=== PATIENT | male | born 1940 | race Caucasian/White ===

== ENCOUNTER 2021-02-10 15:24 | Outpatient (REF) | payer MEDICARE, BC, SELFPAY ==
[2021-02-10 17:12] LABS: Abs Immature Grans 0.04 10^3/uL (0.0-0.06); Absolute Basophil Count 0.03 10^3/uL (0.0-0.2); Absolute Eosinophil Count 0.12 10^3/uL (0.0-0.7); Absolute Monocyte Count 0.77 10^3/uL (0.1-0.8); Absolute Neutrophil Count 5.15 10^3/uL (1.2-6.7); Basophils % 0.4; Eosinophils % 1.5; HCT 38.8 % (40.0-50.0); HGB 12.3 g/dL (13.5-17.5); Immature Grans % 0.5; Lymphocytes % 21.8; MCH 31.5 pg (27.0-33.0); MCHC 31.7 % (32.0-36.0); MCV 99.5 fL (80-95); MPV 10.3 fL (8.0-11.0); Monocytes % 9.9; Neutrophils % 65.9; Nucleated RBC 0 %; Platelet Count 239 10^3/uL (130-400); RDW 12.9 % (11.8-14.1); WBC 7.81 10^3/uL (4.4-10.8)
[2021-02-10 18:37] LABS: Hemoglobin A1C 5.4 % (<5.7)
== END 2021-02-10 15:25 | disposition home or self-care (01) ==
LOC: LBN 15:24
PROVIDERS: PCP Family Medicine; Visit Provider Internal Medicine
DX: N39.0 Urinary tract infection, site not specified; E11.9 Type 2 diabetes mellitus without complications; E78.5 Hyperlipidemia, unspecified; F02.80 Dementia in other diseases classified elsewhere, unspecified severity, without behavioral disturbance, psychotic disturbance, mood disturbance, and anxiety; G31.83 Neurocognitive disorder with Lewy bodies
CPT/HCPCS: 80053; 80069; 82306; 82607; 82728; 82746; 83036; 83540; 83735; 84443; 85025

== ENCOUNTER 2021-03-24 00:13 | Emergency (ER) | payer MEDICARE, BC, SELFPAY ==
--- NOTE | 2021-03-24 00:15 | DI.CT_ITS ---
Exam(s) CT HEAD CERV SPINE FACIAL WO EXAM: CT HEAD CERV SPINE FACIAL WO CLINICAL HISTORY: fall, hit head, left orbit cut. TECHNIQUE: Imaging Protocol: Axial computed tomography images with coronal and sagittal reformatted images were created and reviewed COMPARISON: CT HEAD WITHOUT CONTRAST from 03/19/2013 FINDINGS: CT Head: Ventricles and Extra axial spaces: Normal in size and morphology for the patient's age. Hemorrhage: None. Cerebral parenchyma: No acute territorial infarct. There are areas of decreased attenuation in the w myke matter most consistent with small vessel ischemic disease. Midline shift: None. Brainstem/Cerebellum: Normal. Calvarium: Normal. Visualized Paranasal sinuses/Mastoids: There is mild mucosal thickening in the maxillary sinuses and ethmoid air cells bilaterally. No fluid levels are seen. The mastoid air cells are clear. Soft Tissues: Unremarkable. CT Face: Facial Bones: There is a depression of the left nasal bones. Sinuses and Mastoids: Mild mucosal thickening is seen in the maxillary sinuses and ethmoid air cells bilaterally. There may be a trace amount of fluid layering in the right maxillary sinus. The masto id air cells are clear. Mild mucosal thickening is seen in the frontal sinuses. Globes, extraocular muscles, optic nerves and retrobulbar fat: Normal. Upper aerodigestive tract: Normal. Mandible and bilateral temporomandibular joints: Normal. Soft tissues: Normal. CT Cervical Spine: Bones: No acute fracture or subluxation. There are degenerative changes seen throughout the cervical spine. Soft Tissues: Unremarkable. Lung Apices: Clear. IMPRESSION: 1. No acute intracranial process. 2. No acute fracture or subluxation in the cervical spine. 3. Depression of the left nasal bone which may be acute. RADIATION DOSE DELIVERED: 2,194mGy.cm Total DLP DATA REPOSITORY: All CT scans at this facility are submitted to the National Radiology Data Registry (NRDR) Dose Index Registry (DIR) with the [employer] (A[employer]). RADIATION OPTIMIZATION: All CT scans at this facility use at least one of these dose optimization te chniques: automated exposure control; mA and/or kV adjustment per patient size (includes targeted exa ms where dose is matched to clinical indication); or iterative reconstruction.
[2021-03-24 00:16] VITALS: BP 164/74; PULSE 84; RESP 18; TEMP 36.3; O2SAT 98
--- NOTE | 2021-03-24 00:26 | DI.RAD_ITS ---
Exam(s) XR SHOULDER LT COMPLETE 2+V EXAM: XR SHOULDER LT COMPLETE 2+V CLINICAL HISTORY: fall, left shoulder pain. TECHNIQUE: 2D digital imaging was performed of the left shoulder. Four images were obtained. AP an d Y views were obtained. COMPARISON: No exams were available for comparison FINDINGS: BONES: No acute fracture is present. No bony destructive lesion is seen. JOINTS: No dislocation present. Mild degenerative changes at the acromioclavicular and glenohumeral j oints. SOFT TISSUE: Normal. IMPRESSION: No acute fracture or dislocation. DATA REPOSITORY: RADIATION DOSE DELIVERED:
--- NOTE | 2021-03-24 00:27 | W.ED.GENAD ---
Discharge Plan Disposition Patient Disposition: HOME Condition: Good Discharge Details Clinical Impression: Fall, Contusion, Abrasion Primary Care Provider: Ferny Bess ED Provider: Josh Clark Home Meds and New Rx's Prescriptions: Continued metformin 500 MG tablet 500 mg PO BID RF: 0 nabumetone 750 MG tablet 750 mg PO BID RF: 0 alprazolam 1 MG tablet 1 mg PO QID PRN PRNRF: 0 sertraline 100 MG tablet 100 mg PO DAILY RF: 0 aspirin 81 MG tablet,delayed release (DR/EC) 81 mg PO DAILY RF: 0 ascorbic acid (vitamin C) [Vitamin C] 500 MG tablet 500 mg PO DAILY RF: 0 nitroglycerin [Nitrostat] 0.4 MG tablet, sublingual 0.4 mg Sublingual PRN PRNRF: 0 lisinopril 5 MG tablet 5 mg PO DAILY RF: 0 clotrimazole 45 GM cream RF: 0 finasteride 5 MG tablet 5 mg PO DAILY RF: 0 oxycodone 5 MG tablet 5 - 10 mg PO PRN PRNRF: 0 alfuzosin [Uroxatral] 10 MG tablet extended release 24 hr 10 mg PO DAILY RF: 0 magnesium oxide 500 MG capsule 500 mg PO DAILY RF: 0 Discharge Instructions Instructions: Contusion in Adults (ED) Additional Instructions: At this time the CAT scan of your head is negative for any fracture, bleed, or other abnormality. The x-ray of your shoulder shows no signs of fracture either thankfully. There is a mild deformity in your nose on the imaging however this is likely from the previous fall that you had were your nose was broken. Currently there does not appear to be current clinical evidence of a significant fracture now though. For the abrasion on your hand please change the bandaging twice daily. Please apply bacitracin or triple antibiotic ointment daily to prevent infection. The small laceration on your eyebrow was glued with Dermabond. This will come off on its own in the next 7 to 10 days. Please keep it bandaged otherwise. If you notice any worsening of your symptoms, or any new symptoms such as vomiting, diarrhea, fever, chills, shortness of breath, chest pain, numbness, weakness, or fainting , please return immediately to the emergency department for reevaluation. Please follow up with your primary care provider as soon as possible for reassessment and reevaluation. As always, it was a pleasure participating in your medical care today. Referrals: Ferny Bess [Primary Care Provider] - Medical Decision Making This is an 80-year-old male with a past medical history of BPH, diabetes, gout, hypertension, previous GI bleed who presents from the [facility] for evaluation after a fall. Patient states he recalls the entire event. He states that he was reaching off of his bed, then fell and hit his head on the furniture next to his bed. He had an abrasion that was incurred over his left hand and left eyebrow. He is not on any blood thinners. Nursing staff from the [facility] states that the patient was also complaining of right shoulder pain, but the patient complains currently of left shoulder pain. Patient denies any pain in the shoulders at this time. No other complaints at this time. No other modifying factors. He denies any chest, back, arm or leg pain. Physical exam demonstrates no midline cervical thoracic or lumbar spine tenderness. Patient does have a mild abrasion over the left brow, and left knuckle. No other evidence of significant trauma. No neurologic deficits on exam. Due to the patient's age and risk factors we will get a CT scan of the head neck and face. We will get an x-ray of the left shoulder based on his most recent statements. Low likelihood for fracture though based on current clinical exam. Will monitor closely and reassess. 1:[address] scan of the head is negative for acute process, there is some deformity of the nasal bone, however upon my discussion with the patient's he has fractured his nose in the past. This is likely what we are seeing on imaging now. He does not appear to have evidence of a significant acute nasal fracture currently. However there may be a small component from his fall today although I feel this is less likely. The patient's left brow was glued with Dermabond and this is reapproximated the skin well. X-ray of the shoulder shows no evidence of fracture currently. At this time the patient remained stable. I did call the patient's and discussed the plan with her, and she agrees. Answered all questions. Patient will be stable for discharge back to the [facility] facility. I have extensively reviewed the treatment plan and discharge instructions with the patient and their family. I have addressed all patient concerns at this time. The patient and family was made aware of what symptoms to monitor for that would warrant a return to the emergency department. Discussed the plan with the patient and family, they demonstrate verbal understanding and agreement with our assessment and plan at this time. The documentation in this chart was dictated using [employer] dictation software. Please excuse any dictation errors. FINDINGS: Bones/joints: Negative for fracture or dislocation. Normal acromioclavicular alignment. Acromial humeral space maintained. Mild glenohumeral narrowing. Soft tissues: Negative for soft tissue air. No foreign bodies observed. Visualized lung is clear. IMPRESSION: No acute osseous abnormality. If symptoms persist, follow-up imaging advised. Thank you for allowing us to participate in the care of your patient. Dictated and Authenticated by: Toi Betancourt MD 03/24/2021 1:46 AM Eastern Time ([place] & [place]) FINDINGS: Brain: Negative for intracranial hemorrhage. Mild cerebral atrophy. Moderate scattered white matter hypoattenuation. Negative for midline shift. Extra-axial space: No evidence of subdural hemorrhage. Cerebral ventricles: No ventriculomegaly. Paranasal sinuses: Visualized sinuses are unremarkable. No fluid levels. Mastoid air cells: Visualized mastoid air cells are well aerated. Vasculature: Vertebral and carotid artery calcifications are noted. Bones/joints: Unremarkable. No acute fracture. Soft tissues: Unremarkable. IMPRESSION: Negative for intracranial hemorrhage or other acute intracranial abnormality. FINDINGS: Orbital cavity: The post-septal orbits are unremarkable, without hemorrhage or fat stranding. Globes appear intact. Bilateral enophthalmos noted. Bones/joints: Deformity and depression of the nasal bones is observed. The nasal septum is intact. Bony orbits are intact. Maxilla and zygomatic arches are intact. Pterygoid plates are intact. Mandible is intact. Paranasal sinuses: Mild mucosal thickening noted in both maxillary sinuses and throughout the ethmoid air cells. Sphenoid sinus is clear. Mild fluid noted in the small frontal sinus cavities. Trace layering fluid noted in the right maxillary sinus. Soft tissues: Parapharyngeal spaces are normal. IMPRESSION: 1. Deformity and depression of the nasal bones. 2. Mild fluid and mucosal thickening in the paranasal sinuses FINDINGS: Bones/joints: No acute fracture. Mild degenerative anterolisthesis C5 on C6. Discs/Spinal canal/Neural foramina: Multilevel degenerative disc disease and facet arthropathy. Mild spinal canal stenosis suspected at C3-C4. Lungs: Lung apices are normal. Soft tissues: Unremarkable. IMPRESSION: No acute findings. Thank you for allowing us to participate in the care of your patient. Dictated and Authenticated by: Toi Betancourt MD 03/24/2021 1:28 AM Eastern Time ([place] & [place]) HPI General Date/Time Provider Initiated Documentation: 03/24/21 00:25. HPI Narrative: This is an 80-year-old male with a past medical history of BPH, diabetes, gout, hypertension, previous GI bleed who presents from the [facility] for evaluation after a fall. Patient states he recalls the entire event. He states that he was reaching off of his bed, then fell and hit his head on the furniture next to his bed. He had an abrasion that was incurred over his left hand and left eyebrow. He is not on any blood thinners. Nursing staff from the [facility] states that the patient was also complaining of right shoulder pain, but the patient complains currently of left shoulder pain. Patient denies any pain in the shoulders at this time. No other complaints at this time. No other modifying factors. He denies any chest, back, arm or leg pain. Related Data Home Medications Medication Instructions Recorded Confirmed alfuzosin [Uroxatral] 10 mg PO DAILY 03/19/13 03/19/13 alprazolam 1 mg PO QID PRN PRN 03/19/13 03/19/13 ascorbic acid (vitamin C) [Vitamin 500 mg PO DAILY 03/19/13 03/19/13 C] aspirin 81 mg PO DAILY 03/19/13 03/19/13 clotrimazole 03/19/13 03/19/13 finasteride 5 mg PO DAILY 03/19/13 03/19/13 lisinopril 5 mg PO DAILY 03/19/13 03/19/13 magnesium oxide 500 mg PO DAILY 03/19/13 03/19/13 metformin 500 mg PO BID 03/19/13 03/19/13 nabumetone 750 mg PO BID 03/19/13 03/19/13 nitroglycerin [Nitrostat] 0.4 mg SUBLINGUAL PRN PRN 03/19/13 03/19/13 oxycodone 5 - 10 mg PO PRN PRN 03/19/13 03/19/13 sertraline 100 mg PO DAILY 03/19/13 03/19/13 Allergies Allergy/AdvReac Type Severity Reaction Status Date / Time tamsulosin HCl [From Flomax] Allergy muscle Unverified 03/19/13 15:25 cramps General Stated Complaint: Laceration YAIMA: 4 Review of Systems All systems reviewed & are unremarkable except as noted in HPI and below PFSH All Active Problems (Updated 03/24/21 @ 01:21 by Josh Clark DO) Fall (Acute) Contusion (Acute) Abrasion (Acute) Parkinson disease (Chronic) Sensory hearing loss, bilateral (Acute) Focal (motor) epilepsy (Acute) Ataxia (Acute) Tremor (Acute) Social History Smoking/Tobacco Use Status: Former Tobacco Use Smoking risk assessment performed?: Yes Drug use: Never Do you feel safe at home: Yes Do you feel safe in your relationship?: Yes Exam Narrative Exam Narrative: 1.Const: Well-nourished, Well-developed, appearing stated age 2.Eyes: PERRL, no conjunctival injection, and symmetrical lids. 3.ENT: Atraumatic external nose and ears. There is a small abrasion over the patient's left brow. Moist MM. Neck: Symmetric, trachea midline, No thyromegaly. There is no evidence of raccoon eyes, ramírez sign, CSF rhinorrhea, mastoid tenderness, cranial crepitus, hemotympanum, exophthalmos, or hyphema. Patient demonstrates intact dentition with no signs of tooth avulsion or fracture, no signs of jaw deformity, no evidence of a LeFort's fracture, with an intact palate, nose and orbital region. There is no evidence of a nasal septal hematoma. No proptosis. Jaw closes symmetrically. Airway is clear. 4.CVS: +S1/S2, No murmurs or gallops. Peripheral pulses 2+ and equal in all extremities. Brisk capillary refill in all extremities. 5.RESP: Unlabored respiratory effort. Clear to auscultation bilaterally. No wheezes rales or rhonchi 6.GI: Soft, Nontender/Nondistended, No hepatosplenomegaly. No guarding or rebound. 7.MSK: Normocephalic, Extremities w/o deformity. No cyanosis or clubbing, Normal movement of all extremities. Patient able to move his upper extremities well with good strength and movement. He denies any pain at this time in his left or right shoulder, but does state that his left shoulder was hurting. No tenderness in the legs. Pelvis stable. No midline cervical thoracic or lumbar spine tenderness. No chest or abdominal tenderness. 8.Skin: Warm, Dry. Small abrasion over the left brow, as well as over the left knuckle. No laceration requiring suturing. 9.Neuro: completions engineer II-XII grossly intact. Sensation grossly intact, no focal neurologic deficits. No dysdiadochokinesia or dysmetria. Normal planes of vision, pulliam of vision are intact. 10.Psych: (AAO) x3. Appropriate mood and affect Course Vital Signs Vital signs: Vital Signs Temperature 36.3 C L 03/24/21 00:16 Pulse 84 03/24/21 00:16 Respiratory Rate 18 03/24/21 00:16 Blood Pressure 164/74 H 03/24/21 00:16 Pulse Oximetry 98 03/24/21 00:16 Temperature 36.3 C L 03/24/21 00:16 Temperature Source Temporal Artery Scan 03/24/21 00:16 Pulse 84 03/24/21 00:16 Respiratory Rate 18 03/24/21 00:16 Respiratory Effort 03/24/21 00:23 Blood Pressure 164/74 H 03/24/21 00:16 Pulse Oximetry 98 03/24/21 00:16 Oxygen Delivery Method Room Air 03/24/21 00:16 Oxygen Flow Rate 0 03/24/21 00:16 Pain Level 2 03/24/21 00:16
--- NOTE | 2021-03-24 01:29 | DI.VRAD_ITS ---
PROCEDURE INFORMATION: Exam: CT Head Without Contrast Exam date and time: 03/24/2021 12:26 AM Age: 80 years old Clinical indication: Injury or trauma; Blunt trauma (contusions or hematomas); Consciousness not specified; Orbit/periorbital; Injury date: 03/24/20; Injury details: Fall, hit head, left orbital cut TECHNIQUE: Imaging protocol: Computed tomography of the head without contrast. Radiation optimization: All CT scans at this facility use at least one of these dose optimization techniques: automated exposure control; mA and/or kV adjustment per patient size (includes targeted exams where dose is matched to clinical indication); or iterative reconstruction. COMPARISON: No relevant prior studies available. FINDINGS: Brain: Negative for intracranial hemorrhage. Mild cerebral atrophy. Moderate scattered white matter hypoattenuation. Negative for midline shift. Extra-axial space: No evidence of subdural hemorrhage. Cerebral ventricles: No ventriculomegaly. Paranasal sinuses: Visualized sinuses are unremarkable. No fluid levels. Mastoid air cells: Visualized mastoid air cells are well aerated. Vasculature: Vertebral and carotid artery calcifications are noted. Bones/joints: Unremarkable. No acute fracture. Soft tissues: Unremarkable. IMPRESSION: Negative for intracranial hemorrhage or other acute intracranial abnormality. PROCEDURE INFORMATION: Exam: CT Maxillofacial Without Contrast Exam date and time: 03/24/2021 12:26 AM Age: 80 years old Clinical indication: Injury or trauma; Blunt trauma (contusions or hematomas); Consciousness not specified; Orbit/periorbital; Injury date: 03/24/20; Injury details: Fall, hit head, left orbital cut TECHNIQUE: Imaging protocol: Computed tomography images of the face without contrast. Radiation optimization: All CT scans at this facility use at least one of these dose optimization techniques: automated exposure control; mA and/or kV adjustment per patient size (includes targeted exams where dose is matched to clinical indication); or iterative reconstruction. COMPARISON: No relevant prior studies available. FINDINGS: Orbital cavity: The post-septal orbits are unremarkable, without hemorrhage or fat stranding. Globes appear intact. Bilateral enophthalmos noted. Bones/joints: Deformity and depression of the nasal bones is observed. The nasal septum is intact. Bony orbits are intact. Maxilla and zygomatic arches are intact. Pterygoid plates are intact. Mandible is intact. Paranasal sinuses: Mild mucosal thickening noted in both maxillary sinuses and throughout the ethmoid air cells. Sphenoid sinus is clear. Mild fluid noted in the small frontal sinus cavities. Trace layering fluid noted in the right maxillary sinus. Soft tissues: Parapharyngeal spaces are normal. IMPRESSION: 1. Deformity and depression of the nasal bones. 2. Mild fluid and mucosal thickening in the paranasal sinuses. PROCEDURE INFORMATION: Exam: CT Cervical Spine Without Contrast Exam date and time: 03/24/2021 12:26 AM Age: 80 years old Clinical indication: Injury or trauma; Blunt trauma (contusions or hematomas); Consciousness not specified; Orbit/periorbital; Injury date: 03/24/20; Injury details: Fall, hit head, left orbital cut TECHNIQUE: Imaging protocol: Computed tomography images of the cervical spine without contrast. Radiation optimization: All CT scans at this facility use at least one of these dose optimization techniques: automated exposure control; mA and/or kV adjustment per patient size (includes targeted exams where dose is matched to clinical indication); or iterative reconstruction. COMPARISON: No relevant prior studies available. FINDINGS: Bones/joints: No acute fracture. Mild degenerative anterolisthesis C5 on C6. Discs/Spinal canal/Neural foramina: Multilevel degenerative disc disease and facet arthropathy. Mild spinal canal stenosis suspected at C3-C4. Lungs: Lung apices are normal. Soft tissues: Unremarkable. IMPRESSION: No acute findings. Dictated and Authenticated by: Toi Betancourt MD. Ordering:HEIDY Moreno MD
[2021-03-24 01:45] VITALS: BP 148/76; PULSE 68; RESP 18; TEMP 36.7; O2SAT 97
--- NOTE | 2021-03-24 01:46 | DI.VRAD_ITS ---
PROCEDURE INFORMATION: Exam: XR Left Shoulder Exam date and time: 03/24/2021 1:17 AM Age: 80 years old Clinical indication: Injury or trauma; Blunt trauma (contusions or hematomas); Left; Injury date: 03/24/21; Injury details: Fall, shoulder pain TECHNIQUE: Imaging protocol: XR Left shoulder. Views: 2 or more views. COMPARISON: No relevant prior studies available. FINDINGS: Bones/joints: Negative for fracture or dislocation. Normal acromioclavicular alignment. Acromial humeral space maintained. Mild glenohumeral narrowing. Soft tissues: Negative for soft tissue air. No foreign bodies observed. Visualized lung is clear. IMPRESSION: No acute osseous abnormality. If symptoms persist, follow-up imaging advised. Dictated and Authenticated by: Toi Betancourt MD. Ordering:HEIDY Moreno MD
== END 2021-03-24 02:00 | disposition home or self-care (01) ==
PROVIDERS: Emergency Provider Student in an Organized Health Care Education/Training Program; PCP Family Medicine
DX: S01.112A Laceration without foreign body of left eyelid and periocular area, initial encounter (principal); S60.512A Abrasion of left hand, initial encounter; S09.8XXA Other specified injuries of head, initial encounter; W07.XXXA Fall from chair, initial encounter
CPT/HCPCS: 90471; 99284; 70450; 70486; 72125; 73030; 99283

== ENCOUNTER 2021-03-24 10:00 | Outpatient (REF) | payer MEDICARE, BC, SELFPAY ==
[2021-03-25 12:53] LABS: Iron 39 ug/dL (65-175); Total Iron Binding Capacity 219 ug/dL (250-450); Transferrin Sat 18 % (20-55)
[2021-03-25 12:55] LABS: Hemoglobin A1C 5.6 % (<5.7); VALPROIC ACID 46.9 ug/mL
[2021-03-25 13:23] LABS: ALT 11 U/L (16-63); AST 19 U/L (15-37); Albumin 3.3 g/dL (3.4-5.0); Alkaline Phosphatase 141 U/L (46-116); Anion Gap 11.9 mmol/L (3-11); BUN 16 mg/dL (7-18); Bilirubin, Total 0.5 mg/dL (0.2-1.0); CO2 28.1 mmol/L (21.0-32.0); CREATININE 0.9 mg/dL (0.70-1.30); Calcium 8.8 mg/dL (8.5-10.1); Chloride 99 mmol/L (98-107); Glucose 147 mg/dL (74-106); Magnesium 1.8 mg/dL (1.8-2.4); Potassium 4.2 mmol/L (3.5-5.1); Sodium 139 mmol/L (136-145); TSH (W/Ref FT4) 2.13 uIU/mL (0.36-3.74); Total Protein 7.2 g/dL (6.4-8.2); Vitamin B12 490 pg/mL (193-986)
[2021-03-25 22:02] LABS: Folate >24.0 ng/mL (See Note)
== END 2021-03-25 10:01 | disposition home or self-care (01) ==
LOC: LBN 10:00
PROVIDERS: PCP Family Medicine; Visit Provider Nurse Practitioner Gerontology
DX: E11.9 Type 2 diabetes mellitus without complications (principal); I10 Essential (primary) hypertension; E78.5 Hyperlipidemia, unspecified; E87.6 Hypokalemia; E83.42 Hypomagnesemia
CPT/HCPCS: 80053; 80164; 82607; 82746; 83036; 83540; 83550; 83735; 84443; 85025

== ENCOUNTER 2021-03-31 15:50 | Outpatient (REF) | payer MEDICARE, BC, SELFPAY ==
[2021-03-31 16:31] LABS: HCT 35.2 % (40.0-50.0); HGB 11.1 g/dL (13.5-17.5); MCH 31.1 pg (27.0-33.0); MCHC 31.5 % (32.0-36.0); MCV 98.6 fL (80-95); MPV 10.4 fL (8.0-11.0); Nucleated RBC 0 %; Platelet Count 196 10^3/uL (130-400); RBC 3.57 10^6/uL (4.36-5.78); RDW 12.9 % (11.8-14.1); RDW-SD 46.9 fL; WBC 22.62 10^3/uL (4.4-10.8)
[2021-03-31 16:55] LABS: Absolute Eosinophil Count 0.23 10^3/uL (0.0-0.7); Absolute Lymphocyte Count 0.45 10^3/uL (1.2-3.4); Absolute Monocyte Count 0.68 10^3/uL (0.1-0.8); Absolute Neutrophil Count 21.04 10^3/uL (1.2-6.7); Bands % 23; Diff Comment Manual Differential; Metamyelocytes % 1; RBC Morphology Normal
== END 2021-03-31 15:51 | disposition home or self-care (01) ==
LOC: LBN 15:50
PROVIDERS: PCP Family Medicine; Visit Provider Nurse Practitioner Gerontology
DX: G20 Parkinson's disease (principal); F02.80 Dementia in other diseases classified elsewhere, unspecified severity, without behavioral disturbance, psychotic disturbance, mood disturbance, and anxiety
CPT/HCPCS: 85025

== ENCOUNTER 2021-04-01 10:10 | Outpatient (REF) | payer MEDICARE, BC, SELFPAY ==
[2021-04-01 07:38] LABS: Abs Immature Grans 1.01 10^3/uL (0.0-0.06); HCT 33.9 % (40.0-50.0); HGB 10.9 g/dL (13.5-17.5); MCH 31.3 pg (27.0-33.0); MCHC 32.2 % (32.0-36.0); MCV 97.4 fL (80-95); MPV 9.8 fL (8.0-11.0); Nucleated RBC 0 %; Platelet Count 178 10^3/uL (130-400); RBC 3.48 10^6/uL (4.36-5.78); RDW 13.2 % (11.8-14.1); WBC 23.98 10^3/uL (4.4-10.8)
[2021-04-01 07:55] LABS: AST 30 U/L (15-37); Albumin 1.9 g/dL (3.4-5.0); Alkaline Phosphatase 302 U/L (46-116); Anion Gap 8.7 mmol/L (3-11); BUN 47 mg/dL (7-18); Bilirubin, Total 0.7 mg/dL (0.2-1.0); CO2 26.3 mmol/L (21.0-32.0); CREATININE 1.4 mg/dL (0.70-1.30); Calcium 8.6 mg/dL (8.5-10.1); Chloride 100 mmol/L (98-107); Estimated GFR 48.64 (mL/min/1.73m2); Glucose 89 mg/dL (74-106); Potassium 4.3 mmol/L (3.5-5.1); Sodium 135 mmol/L (136-145); Total Protein 6.2 g/dL (6.4-8.2)
[2021-04-01 07:56] LABS: ALT < 6 U/L (16-63)
[2021-04-01 08:08] LABS: Absolute Monocyte Count 0.96 10^3/uL (0.1-0.8); Absolute Neutrophil Count 21.58 10^3/uL (1.2-6.7); Bands % 6; Diff Comment Manual Differential; Metamyelocytes % 1; RBC Morphology Normal
--- OUTSIDE RECORDS SUMMARY | 2021-04-01 10:14 | XMS_ITS ---
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 Active 85181 003 of right foot Problem Type 2 diabetes E11.42 Active 7137 93010 mellitus with diabetic polyneuropathy, without long-term current use of insulin Problem 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 2744415 08 chronic ulcer of other part of unspecified foot with unspecified severity Problem Hammer toe of M20.41 Active 729103 [id number] right foot ALLERGIES Substance Reaction Event Type Date Status Flomax cramps Drug Allergy Oct, Active Simvastatin Unknown Drug Allergy Oct, Active ENCOUNTERS Encounter Location Date Diagnosis [facility] Oct, [place] [address] foot, limite d to breakdown of skin L97.511 ; T ype 2 diabetes mellitus with fo ot ulcer E11.621 ; Hallux malleus of right foot M20.3 1 ; Hammer toe of left foot M20 .42 ; Hammer toe of right megan t M20.41 and Type 2 diabetes mellitus with diabetic polyneu ropathy, without long-ter m current use of insulin E11.4 [address] [facility] Aug, [place] [address] foot, limite d to breakdown of skin L97.511 ; T ype 2 diabetes mellitus with fo ot ulcer E11.621 ; Non-pr essure chronic ulcer of other p art of unspecified foot with unspecified nahum rity L97.509 ; Hallux malleus o f right foot M20.31 ; Hammer toe of left foot M20.42 ; Lawrence mmer toe of right foot M20.4 1 and Type 2 diabetes mellitu s with diabetic polyneu ropathy, without long-ter m current use of insulin E11.4 2 [facility] [address] [facility], [place] [address] [facility] [address] [facility] June, [place] [address] exam E11.9 ; Chronic ulcer of toe of right megan t, limited to breakdown of ski n L97.511 ; Type 2 diabetes mellitus with foot ulcer E11.6 21 ; Non-pressure chr onic ulcer of other part of un specified foot with unspecified severity L97.509 ; Hallux malleus of right foot M20.3 1 ; Hammer toe of left foot M20 .42 ; Hammer toe of right megan t M20.41 and Type 2 diabetes mellitus with diabetic polyneu ropathy, without long-ter m current use of insulin E11.4 [address] [facility], [place] [address] [address], [place] [address] IMMUNIZATIONS No Known Immunizations SOCIAL HISTORY Qualifiers Date Former Smoker REASON FOR REFERRAL FUNCTIONAL STATUS PLAN OF CARE Activity Details Follow Up 2 Months Reason: VITAL SIGNS Height 71 in 2018-11-22 Height 71 in 2018-09-20 Height 71 in 2018-07-19 Height 71 in 2018-06-30 Weight 239.2 lbs 2018-09-20 Weight 234.2 lbs 2018-07-19 BMI 33.36 kg/m2 2018-09-20 BMI 32.66 kg/m2 2018-07-19 Temperature 97.0 degrees Fahrenheit 2018-11-22 Temperature 97.8 degrees Fahrenheit 2018-09-20 Temperature 97.8 degrees Fahrenheit 2018-07-19 Heart Rate 71 /min 2018-11-22 Heart Rate 89 /min 2018-09-20 Heart Rate 99 /min 2018-07-19 Respiratory Rate 16 /min 2018-11-22 Respiratory Rate 16 /min 2018-09-20 Respiratory Rate 18 /min 2018-07-19 Oximetry 95 % 2018-11-22 Oximetry 94 % 2018-09-20 Oximetry 94 % 2018-07-19 Blood pressure systolic 122 mm Hg 2018-11-22 Blood pressure diastolic 82 mm Hg 2018-11-22 MEDICATIONS Medication Instructions Dosage Frequency Start End Duration Statu s Date Date Nitrostat 0.4 Sublingual as as directed Not-Taki MG needed ng Furosemide 20 Orally Once a 1 tablet 24h Act andrez MG day Aspirin 81 81 Orally Once a 1 tablet 24h 30 day(s) A ctive MG day Ginny-Dalhart Active Plus Cold 2-30-325 mg Colace 100 MG Orally twice a 1 capsule as 12h Active day needed Sudafed 30 MG Orally every 6 1 tablet as 6h Active hrs needed Levodopa orally three as directed 8h Active times a day MELATONIN 3 mg po at bedtime 1 ttablet A ctive as needed with food metFORMIN HCl Orally twice a 1 tablet with 12h Active 500 MG day a meal ALPRAZolam 1 Orally Twice a 1 tablet 12h Act andrez MG day Sertraline HCl Orally Once a 2 tablet 24h Ac tive 100 MG day Alfuzosin HCl Orally Once a 1 tablet 24h 30 day(s) A ctive ER 10 MG day immediately after the same meal Depakote 500 Orally Twice a 1 tablet 12h 30 day(s) A ctive MG day -TEST STRIPS as directed Active Finasteride 5 Orally Once a 1 tablet 24h 30 day(s) A ctive MG day Keppra 1000 MG Orally Twice a 1.5 tablet 12h Active day APAP Active Advil 200 MG Orally Three 1 tablet with 8h Active times a day food or milk as needed PROCEDURES Procedure Date Ordered Result Body Site zzPREV: DIABETES foot exam 2018-07-19 N/A RESULTS Name Result Date Reference Range HEMOGLOBIN A1C 2018-07-16 HGA1C 5.6 CALC. MEAN GLUC HB2 reviously reported u MULTIPLE LABS 2018-07-17 REASON FOR VISIT follow up cancelled did not want to r/s 02/06, 2 month f/u, r great toe diabetic ulcer, referral done, 2 month f/u right toe ulcer Referral Done, Last seen by ALR on 09/20/18 -HL, Has patient received Diabetic shoes for [facility] yet? -HL, Does patient have any new wounds?- HL , pt states that his feet hurt, mostly the big toe of the right foot , DM Foot care, referral done , last seen by ALR 07/19/18 for right diabetic toe ulcer and area of redness, skin breakdown left great toe , Added silicone cap to right hallux to prevent shearing., Prescription to [facility] faxed at last visit, advised two tylenol arthritis one hour prior to bed., pt states he is here for DM footcare, pt states he has seen [facility] but the shoes are not in yet , pt states he has not been wearing the silicone cap right hallux, R/S missed appt, Diabetic foot ulcer care, nail care f/u, Referral done, Patient was last seen on 07/19/18 diabetic foot and nail care. Diabetic ulcer right toe and skin breakdown left great toe., Wound care discussed, allow wound to air, added silicone cap to right hallux. [facility] orde done for shoes andinserts. Advised two tylenol arthritis instead of high dose ibuprofen., Diabetic Ulcer right big toe, referral done, per referral note dated 06/28/18, patient reports open sore on right big toe noticed beginning of May. treating and dressing at home. Tried epsom soaks. Painful, denies warmth or purulent drainage., NEW POD PATIENT , A1C: 07/17/18, 5.6, social history/hospitalizations, pt states heis here because he has an ulcer on the top of his right great toe, pt also states both of his great toes hurt, pt's states she cleaned the ulcer with peroxide, put neosporin and a bandaid, pt's states they soaked his feet in epsom salt which helped a little, pt's states pt does not haveany bandaids on the ulcer today because they are starting to heal up nicely, Hemoglobin A1C request,update chart Insurance Providers Formerly [facility] Health Member Patient Patient Patient Patient Patient Subscriber Subscriber Subscriber Group Insurance Plan Plan Plan Plan ID Relationship Address Phone Name Date of ID Name Date of No Type Insurance Insurance Insurance Coverage to Subscriber Address Phone Name Dates MEDICARE [address] MEDICARE self GREG [id number] [facility] [place] [id number] S-MEDICOMP [phone] S-MEDICOMP self GREG [id number] [place] [address]^[place] [address] [address] [place] [id number] S-BLUE [phone] S-BLUE self GREG [id number] [facility] [address] [place] [address] [place] [address] SELF PAY self GREG [id number] AFTER [place] [address] [place]
== END 2021-04-01 10:11 | disposition home or self-care (01) ==
LOC: LBN 10:10
PROVIDERS: PCP Family Medicine; Visit Provider Nurse Practitioner Gerontology
DX: N39.0 Urinary tract infection, site not specified (principal); E78.5 Hyperlipidemia, unspecified; G20 Parkinson's disease; R29.6 Repeated falls
CPT/HCPCS: 80053; 85025